=== PATIENT | male | born 1975 | race African-American/Black ===

== ENCOUNTER 2024-05-08 15:39 | Emergency (ER) | payer MEDICAID ==
[~2024-05-08] VITALS: Ht 182.9 cm; Wt 150.0 kg
[2024-05-08 15:44] VITALS: BP 160/88; PULSE 105; RESP 19; TEMP 98.4; O2SAT 99
== END 2024-05-08 16:31 | disposition home or self-care (01) ==
LOC: ER 15:39
DX: S09.90XA Unspecified injury of head, initial encounter (principal); E11.9 Type 2 diabetes mellitus without complications; I10 Essential (primary) hypertension; Y04.0XXA Assault by unarmed brawl or fight, initial encounter; Y93.89 Activity, other specified; Y92.89 Other specified places as the place of occurrence of the external cause; Y99.8 Other external cause status
CPT/HCPCS: 99283